=== PATIENT | female | born 1995 | race Hispanic/Latino ===

== ENCOUNTER 2023-04-07 23:01 | Inpatient (IN) | payer MEDICAID, SELFPAY ==
[2023-04-07 21:42] VITALS: BMI 32.7
[2023-04-07 21:51] VITALS: BP 121/73; PULSE 83; TEMP 37.3; O2SAT 98
[2023-04-07] MEDS: Lactated Ringers 1,000 ML 200 ML IV (23:20)
[2023-04-07 23:24] VITALS: PULSE 88; O2SAT 98
[2023-04-07] MEDS: LACTATED RINGERS 500 ML 999 ML IV (23:30)
[2023-04-07 23:39] LABS: Absolute Lymphocyte Count 3.14 X10^3/uL (0.83-4.51); Absolute Neutrophil Count 10.3 X10^3/uL (2.0-7.7); Basophil# 0.04 X10^3/uL; Basophil% 0.3 % (0-1); Eosinophil# 0.03 X10^3/uL; Eosinophils% 0.2 % (0-5); Hematocrit 37.5 % (37-47); Hemoglobin 12.8 g/dL (12.0-15.0); Lymphocyte # 3.14 X10^3/ul (0.83-4.51); Lymphocyte % 21.7 % (19-41); Mean Corp Hgb Conc 34.1 g/dL (32-36); Mean Corpuscular Hgb 30.9 pg (27.0-32.0); Mean Corpuscular Volume 90.6 fL (81-99); Mean Platelet Vol. 12.6 fl (6.2-12.0); Monocyte# 0.79 X10^3/uL; Monocyte% 5.5 % (0-10); NRBC Flagged by Analyzer 0 % (0-5); Neutrophil # 10.34 X10^3/uL (2.7-7.7); Neutrophil % 71.4 % (47-70); Platelet Count 189 K/mm3 (150-450); RBC Distribution Width CV 12.5 % (11.6-14.6); RBC Distribution Width SD 40.7 fl (35.1-43.9); Red Blood Count 4.14 M/mm3 (4.2-5.4); White Blood Count 14.5 K/mm3 (4.4-11.0)
[2023-04-08] VITALS (38 sets, daily range): BP systolic 107–136; BP diastolic 56–76; PULSE 83–107; RESP 14–16; TEMP 36.4–37.8; O2SAT 97–100
[2023-04-08] MEDS: Oxytocin 10 UNITS/ML Vial IM (00:13)
[2023-04-08] MEDS: Oxytocin 15 Units/NS 250ml 15 UNITS/250 ML IV.SOLN 83 UNITS IV (00:13)
--- NOTE | 2023-04-08 00:25 | EX.PCM.OBRPT ---
Vaginal Delivery Maternal Presentation Maternal Presentation: Active Labor and Spontaneous Rupture of Membranes Operative Information Date of Procedure: 04/08/23 Pre-Operative Diagnosis: 39 weeks gestation, transfer of care 2nd trimester of , ACTIVE labor and SROM Post-Operative Diagnosis: same, live male Surgery / Procedure Performed: Spontaneous Vaginal Delivery Type of Anesthesia: None Estimated Blood Loss: 100 Time of Delivery: 00:10 Findings Description of Procedure: Patient arrived on the unit went from 4.5cm with spontaneous rupture membranes to complete within a short amount of time. I arrived on the unit patient was complete +1 station epidural was not able to be placed. Patient delivered a live male infant without complication. With good maternal pushing efforts the patient delivered the 's head loose nuchal was appreciated it was reduced. Good maternal pushing efforts and gentle downward traction delivered the anterior shoulder followed by the rest of the infant's body. The was then placed on the maternal chest for immediate skin to skin. Delayed cord clamping was performed. Mouth and nose were suctioned. Cord was then clamped and cut. Pitocin was started and IM Pitocin was given as indicated. Placenta was then delivered intact without complication. Perineum and vaginal tissue was inspected no lacerations. Presentation: Vertex Amniotic Membrane Rupture Type: Spontaneous Amniotic Fluid Description: Clear Placental Delivery Description: Expressed Placenta Disposition: [facility] Specimen(s) Removed: Placenta Cord Vessel Description: 3 Vessels Cord Entanglement: Around neck x 1, loose Nuchal Cord Compression: Without compression (1 minute): 8 (5 minute): 9 Delayed Cord Clamping: Yes Post Vaginal Delivery Medications Given After Delivery: IV Pitocin and IM Pitocin Episiotomy Description: None Laceration: None Complication Complications: None
--- NOTE | 2023-04-08 00:32 | PCM.HP.OB ---
HPI - General General Date of Admission: 04/07/23 Date of Service: 04/07/23 Chief Complaint: CTX HPI Narrative KATHY LOUIS, is a 27 F @ 38.6 weeks who presents c/o Ctx, found to be 4.5cm was kept for observation- SROM occured shortly after and patient rapidly progressed to fully dilated. PFSH PFSH Home Medications doxylamine succinate 25 mg tablet (Unisom (doxylamine)) 25 mg PO QHS PRN sleep 04/07/23 [History Last Taken 04/06/23 21:45] vit no.95-ferrous fumarate 28 mg-folic acid 800 mcg tablet () 1 tab PO DAILY 04/07/23 [History Last Taken 04/06/23 09:00 1 TAB] Allergy/AdvReac Type Severity Reaction Status Date / Time No Known Allergies Allergy Verified 04/07/23 21:43 Surgical History (Updated 04/07/23 @ 22:37 by Sarah Dalton) History of surgery Social History Smoking Status: Former smoker History Elective abortions Hx Para 0 Spontaneous abortions Hx # Term Pregnancies Ectopic pregnancies Hx # Pregnancies Multiple births # of living children Vital Signs Vital Signs Vital Signs: 04/07/23 21:51 04/07/23 21:51 04/07/23 21:51 Temperature 99.1 F Temperature Source Pulse Rate 83 Blood Pressure 121/73 H BP Systolic 121 BP Diastolic 73 Pulse Ox 04/07/23 21:51 04/07/23 21:51 04/07/23 23:24 Temperature Temperature Source Temporal Pulse Rate 88 Blood Pressure BP Systolic BP Diastolic Pulse Ox 98 04/07/23 23:24 04/08/23 00:17 04/08/23 00:17 Temperature Temperature Source Pulse Rate 86 Blood Pressure 107/63 BP Systolic 107 BP Diastolic 63 Pulse Ox 98 04/08/23 00:20 Temperature 97.5 F L Temperature Source Pulse Rate Blood Pressure BP Systolic BP Diastolic Pulse Ox Weight Weight: 89.3 kg Body Mass Index (BMI) 32.7 Labs Labs Labs: Blood Type Pending Antibody Screen Pending Hct 37.5 % (37-47) Hgb 12.8 g/dL (12.0-15.0) Assessment & Plan (1) with care elsewhere: (2) 38 weeks gestation of : (3) Supervision of normal in third trimester: PLAN: Plan Admit to L&D [place] FHR/TOCO Epidural if requested for pain Monitor VS Anticipate
[2023-04-08] MEDS: Methylergonovine 0.2 MG/ML Ampul IM (00:50)
[2023-04-08] MEDS: 0.9% Saline Lock 10 ML Syringe IV (04:42)
--- NOTE | 2023-04-08 05:08 | NURSING ---
Report received from Sarah BOYLE, taking over pt and care at this time.
[2023-04-08] MEDS: Acetaminophen 500 MG Tablet 1000 MG PO ×2 (09:08→17:26)
[2023-04-08] MEDS: Senna/Docusate Sodium 1 Tablet PO (22:13)
[2023-04-09 01:00] VITALS: BP 107/66; PULSE 78; RESP 16; TEMP 37
[2023-04-09] MEDS: Acetaminophen 500 MG Tablet 1000 MG PO (04:09)
--- NOTE | 2023-04-09 08:19 | PCM.PN.OB ---
Subjective Subjective Patient seen at bedside. Ambulating and voiding without difficulty. Denies headache, dizziness, CP, or SOB. Lochia decreasing. with minimal support. Desires discharge home today. Objective Data Objective Data Vital Signs: Vital Signs Temp Pulse Resp BP Pulse Ox O2 Del Method 98.6 F 78 16 107/66 99 Room Air 04/09/23 01:00 04/09/23 01:00 04/09/23 01:00 04/09/23 01:00 04/08/23 02:23 04/09/23 01:00 Oxygen Delivery Method Room Air Weight: 196 lb 13.965 oz Body Mass Index (BMI) 32.7 Intake & Output: Intake and Output for Last 24 Hours 04/07/23 04/08/23 04/09/23 23:59 23:59 23:59 Intake Total 916.67 / 916.67 Output Total 239 / 239 Balance 677.67 / 677.67 Lab / Micro Data 04/07/23 23:20 ROS Eyes Eyes: Denies blurry vision, change in vision or spots in vision ENT HEENT: Denies dizziness or headache(s) Cardiovascular Cardiovascular: Denies abdominal pain, chest pain or dyspnea Respiratory/Chest Respiratory/Chest: Denies cough, dyspnea, shortness of breath at rest or shortness of breath with exertion Gastrointestinal Gastrointestinal: Denies abdominal pain, diarrhea or vomiting Genitourinary Genitourinary: Denies change in urinary stream, difficulty urinating or dysuria Musculoskeletal Musculoskeletal: Reports none Integumentary Integumentary: Denies rash Neurologic Neurologic: Denies dizziness, headache(s), memory loss or weakness Physical Exam Const alert and no apparent distress General Appearance: cooperative and comfortable Exam Limitations: no limitations HEENT normocephalic Eyes General Eye: normal appearance of both eyes Neck full ROM General: normal visual inspection Chest Chest: symmetrical chest wall rise Resp normal respiratory effort and normal air movement Effort and Inspection: symmetric chest movement Auscultation: clear to auscultation bilaterally Cardio regular rate and regular rhythm GI normal to inspection, nondistended, normoactive bowel sounds Back/Spine normal ROM Extremity full ROM and no calf tenderness General Extremity: normal exam except as noted Skin no rashes or lesions noted Neuro CN's II-XII intact bilaterally Psych mental status grossly normal Assessment & Plan (1) (spontaneous vaginal delivery): (2) Care and examination of lactating mother: PLAN: Plan PPD 2 Routine care Pain control D/C home with follow up in office
--- NOTE | 2023-04-09 08:21 | DCINST_ITS ---
Discharge Instructions Diet Discharge Diet: No restrictions Activity Discharge Activity: Return to Normal Activity, May Shower and May Take a Tub Bath May resume sexual activity in: 4-6 weeks Weight Bearing Status: Weight bearing as tolerated Dressing / Incision Call your doctor if you observe: Fever of 101 or Higher, Inability to urinate, Using more than 1 pad per hour, Shortness of breath, Dizziness, Swelling in the ankles, Chest pain, Calf discomfort and Uncontrolled pain Follow Up Care When: Within 10 days Test Results: Test results from this visit will be discussed in further detail at your follow- up appointment, if applicable. Discharge Plan Admission Admit Date/Time: 04/07/23 23:01 Primary Reason for Your Visit: Labor and Delivery Attending Provider: Juliane Knapp Primary Care Provider: Care PhysicianDenise Primary Discharge Orders/Prescriptions Prescriptions: New acetaminophen 500 mg Tablet 1,000 mg PO Q6H PRN PRN (Reason: Pain 1-10 Or Fever) Qty: 0 0RF ibuprofen 600 mg Tablet 600 mg PO Q6H PRN PRN (Reason: Pain Score 1-10) Qty: 0 0RF Continued PNV cmb#95-ferrous fumarate-FA [] 28 mg iron- 800 mcg tablet 1 tab PO DAILY Discontinued Unisom (doxylamine) 25 mg tablet 25 mg PO QHS PRN (Reason: sleep) Referrals / Follow Up: Care Physician,No Primary [Primary Care Provider] - Disposition Disposition (needs filled in before D/C Order can be placed): Home, Self Care
[2023-04-09 08:30] VITALS: BP 129/78; PULSE 86; RESP 18; TEMP 36.8
[2023-04-09 12:50] VITALS: BP 126/71; PULSE 101; RESP 18; TEMP 36.8
--- NOTE | 2023-04-09 14:00 | CASEMGMT ---
Social Work Assessment Labor and Delivery Unit Patient Address:[address] [place] [id number] Phone number: [phone] Date of Referral: 04/07/23, 04/08/23 Time of Referral:? [id number], [id number] Referred By: Juliane Knapp Date of Intervention: ??04/09/23 Time of Intervention:? 1320 Reason for Referral:? Father of patient is an alcoholic FOB not involved Marycruz completed chart review and acknowledges social work consult. Marycruz presented to bedside and met with mother of baby (TIERA Lovett). MOB had a visitor in room with her whom she identified as her mother (maternal grandma), Valeria. MOB stated that it was okay for social work to complete assessment with maternal grandma present. Marycruz completed psychosocial assessment and provided JITENDRA with list of resources for [facility]. History obtained from: medical records, MOB and maternal grandma? Household composition: JITENDRA states that she was previously residing in [facility], and moved to [place] at the end of January. MOB states that at this time she is living with her mother and fiance. Patient's parent/guardian status:? MOB states that she and father of baby (FOB- Hiram Avila) dated each other for 2-3 years an that was about two years ago. MOB stated that they dated very briefly about a year ago, and baby boy is a result of that relationship. MOB denies any history of abuse with FOB including domestic violence and intimate partner violence. Medical History: JITENDRA received routine care, beginning in [facility] and resuming in [place] with [facility]. JITENDRA is 1 and para 0-now 1. JITENDRA delivered baby boy on 04/08/23 via vaginal delivery.Baby boy, named Yair Champagne, was born weighing 7lb 2oz and his apgars were 8 and 9 at one and five minutes of life respectfully. MOB states that she is working on breast feeding and says that it is going ok. MOB acknowledged help that she has received while working with . Marycruz encouraged JITENDRA to utilize outpatient services that [facility] offers. Educational Status:?MOB states that she finished high school and attended a [employer] school. 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 MOB states that she would like to return to work but does not want to feel rushed into finding a new salon after moving and having baby. Supplies:?JITENDRA reports that she has obtained all the necessary baby supplies for Yair, including: car seat, safe sleep space, clothes, diapers, wipes and a breast pump Childcare/Caregiver(s):? JITENDRA states that at this time she does not need to be concerned about finding childcare for baby as she is not working. MOB states that when she is ready to go back to work she will need to establish childcare for baby because her mom works M-F. Transportation:??MOB states that she has her drivers license and a reliable vehicle. No barriers to transportation at this time. Programs/Agencies Involved: JITENDRA is receiving Medicaid through [facility]. MOB states that she is also connected to [facility]. Marycruz provided JITENDRA list of [facility] for her review should a need present itself. ??? Children Services/Legal Issues:??NO former involvement with Children's Services, no issues or concerns today that warrant a referral to be made. ? Behavioral Health Issues: ??Mental Health History: JITENDRA states that she and ARNOLD have not had any mental health diagnoses. Sw educated MOB on signs and symptoms of baby blues and depression. Substance Use History:?JITENDRA denies substance use prior to and during . MOB states that ARNOLD would smoke marijuana from time to time and drink but he did not use any other substances.? Family History:?JITENDRA disclosed that her father (maternal grandpa) is an alcoholic. MOB states that he continues to reside in [place] and will not be a caregiver to baby. ? Drug Screens: ?No urine screens observed in patient's chart. Family/Social Stressors:?JITENDRA denied any stressors or concerns at this time. Support Systems: JITENDRA states that her mom is her biggest supporter. MOB states that she also has friends and a cousin that she is very close to. Depression/Shaken Baby/Safe Sleeping:?Sw educated MOB on signs and symptoms of baby blues and depression. MOB expressed understanding. Marycruz explained that JITENDRA has experienced a lot of change in a short period of time that it could cause her to experience baby blues or depression. MOB expressed understanding and was welcoming of [facility] that includes counseling agencies should she need it. Marycruz also educated MOB on shaken baby prevention and ABCs of safe sleep. MOB expressed understanding. ASSESSMENT:? MOB and maternal grandma at bedside, organizing room in preparation for discharge today. MOB was talkative and receptive to sw involvement and support. MOB recently moved to [place] from [place] where she has resided her whole life because she wanted to be close to her mom. MOB states that FOB is not involved, he is aware that MOB was and that she kept the , but does not want to co-parent with MOB. Much support and education provided to MOB. PLAN:? MOB to be discharged today. Baby to be discharged to [facility] when medically ready. ?No other services requested or indicated. Lynsey Waldrop, BRAND ENGINEER, CNC LATHE PROGRAMMER
== END 2023-04-09 14:45 | disposition home or self-care (01) | DRG 560 ==
LOC: WPOUT 23:01 → WP 23:01
PROVIDERS: Admitting Provider Obstetrics & Gynecology; Visit Provider Obstetrics & Gynecology
DX: O69.81X0 Labor and delivery complicated by cord around neck, without compression, not applicable or unspecified (principal); Z37.0 Single live birth; Z3A.39 39 weeks gestation of pregnancy; Z87.891 Personal history of nicotine dependence
CPT/HCPCS: 59025; 59050; 85025; 86850; 86900; 86901; 99221; J7120; A4216; G0378